=== PATIENT | male | born 1970 | race Caucasian/White ===

== ENCOUNTER 2016-11-21 10:49 | Emergency (ER) | payer OTHER ==
[~2016-11-21] VITALS: Ht 182.9 cm; Wt 95.0 kg
[~2016-11-21 10:49] MED LIST: CLIN150 PO
[2016-11-21 10:50] VITALS: BP 164/90; PULSE 64; RESP 20; TEMP 97.7; O2SAT 98
--- NOTE | 2016-11-21 11:25 | PD ---
Physical Exam Date Seen by Provider: Nov 21, 2016 Time Seen by Provider: 11:25 Narrative Pt was stacking chairs at work last Thursday when his fingers got stuck, when he pulled his hand out he twisted in a way that subsequently caused pain in his right calf. Pt states it is cramping. Pt took Tylenol last night. Pt felt stiff upon awaking this morning. Pt reports swelling in his right calf and ankle with bruising. No PCP. VSS, pt in no acute distress. Pt awaiting bed placement. Data Data Last Documented VS Vital Signs Date Time Temp Pulse Resp B/P Pulse Ox O2 Delivery O2 Flow Rate FiO2 11/21/16 10:50 97.7 64 20 164/90 98 Room Air MDM Supervised Visit with MARIVEL: Denisse Dinero Nov 21, 2016 11:25
[2016-11-21] MEDS ORDERED: NAPR500T PO (12:20)
--- NOTE | 2016-11-21 12:23 | PD ---
HPI Chief Complaint: Pain: Acute or Chronic Time Seen by Provider: 12:21 Travel History International Travel<30 days: No Contact w/Intl Traveler<30days: No Traveled to known affect area: No History of Present Illness HPI 46-year-old male presents to the emergency department for evaluation of right calf injury that occurred 1 week ago. Patient states that he was at work and his finger got pinched between 2 chairs which caused him to become startled and jumped backward suddenly pushing off with his right foot. States that when he did this he immediately felt a pop in his right calf and has had pain, swelling and bruising since this occurred. States that he's noticed bruising on his right ankle and his pain is persisted which is why he presented to the ED today. States he has been taking Tylenol and he has worn compression socks with minimal improvement of symptoms. He is not able to bear full weight on the leg but has been walking without the use of crutches. He denies any fever, chills, nausea, vomiting, numbness or tingling, weakness. Denies any medical conditions. No other complaints. PFSH Past Medical History Medical History: Denies Significant Hx Diminished Hearing: No Influenza Vaccination: No Past Surgical History Surgical History: No Previous Surgery Other Surgery: Yes (VASECTOMY) Social History Alcohol Use: No Tobacco Use: Yes (1/2 PK) Substance Use: No Allergies-Medications (Allergen,Severity, Reaction): Coded Allergies: No Known Allergies (Verified , 06/18/14) Reported Meds & Prescriptions Reported Meds & Active Scripts Active Naproxen 500 Mg Tab 500 Mg PO BID 7 Days Review of Systems Except as stated in HPI: all other systems reviewed are Neg Physical Exam Narrative GENERAL: Well-nourished and well-developed pleasant female patient in no acute distress who is nontoxic appearing. SKIN: Warm and dry. HEAD: Normocephalic and atraumatic. EYES: No injection, drainage, or hyphema noted. PERRLA. EOMI. ENT: No nasal drainage noted. Oropharynx is clear. NECK: Supple and the trachea is midline. CARDIOVASCULAR: Regular rate and rhythm. RESPIRATORY: Breath sounds are equal bilaterally with no accessory muscle use, wheezing, rhonchi, or crackles. MUSCULOSKELETAL: Mild swelling of the right calf with tenderness to palpation along the belly of the gastrocnemius muscle. There is ecchymosis to the right medial ankle but no pain in the right ankle, full range of motion no tenderness to palpation. Normal Oconnell's test. No obvious deformities, cyanosis, or ecchymosis is present throughout the upper and lower extremities. Patient has full range of motion without any signs of neurovascular compromise. DP pulses are 2+ bilaterally. NEUROLOGICAL: Awake, alert, and oriented. Normal speech and gait. Cranial nerves are grossly intact. Data Data Last Documented VS Vital Signs Date Time Temp Pulse Resp B/P Pulse Ox O2 Delivery O2 Flow Rate FiO2 11/21/16 10:50 97.7 64 20 164/90 98 Room Air Orders Crutches (11/21/16 12:21) Splint Or Brace Apply/Monitor (11/21/16 12:21) MDM Medical Decision Making Medical Screen Exam Complete: Yes Emergency Medical Condition: Yes Differential Diagnosis Muscle strain versus tendon injury versus muscle spasm Narrative Course 46-year-old male presents to the emergency department for evaluation of right calf injury that occurred 1 week ago. Patient is afebrile, vital signs are stable. The patient has a muscle tear of the gastrocnemius muscle. The ecchymosis is now traveled to his ankle where was originally his calf. The Achilles tendon is intact. There is no signs or symptoms of compartment syndrome. Discussed supportive care with the patient. He'll be placed in an Lalo wrap and given crutches for ambulation. Discussed rest, ice, compression and elevation. He'll be prescribed NSAIDs. Advised follow-up with his PCP. Patient verbalizes understanding and agreement with treatment plan. Diagnosis Primary Impression: Gastrocnemius strain Qualified Code: S86.111A - Gastrocnemius strain, right, initial encounter Referrals: Orthopedist Patient Instructions: General Instructions, Muscle Strain (ED) Additional Instructions: Apply compression to the area. Use crutches for ambulation until you can walk without a limp. Elevate right leg. Apply ice for 20 minutes on, 20 minutes off. Take medication as prescribed with food and a full glass of water. Follow-up with your Primary Care Physician or an orthopedist if symptoms persist. Return to the ED for any acute worsening of symptoms. Med/Other Pt SpecificInfo: Prescription(s) given Scripts Naproxen 500 Mg Xes140 Mg PO BID 7 Days Ref 0 Prov:Chris Ramirez MD 11/21/16 Disposition: 01 DISCHARGE HOME Condition: Stable Suma Flores Nov 21, 2016 12:23
== END 2016-11-21 12:57 | disposition home or self-care (01) ==
LOC: NETRI 10:49
DX: S86.111A Strain of other muscle(s) and tendon(s) of posterior muscle group at lower leg level, right leg, initial encounter (principal); F17.210 Nicotine dependence, cigarettes, uncomplicated; X50.0XXA Overexertion from strenuous movement or load, initial encounter; Y93.89 Activity, other specified; Y99.0 Civilian activity done for income or pay
CPT/HCPCS: 99283; E0113